=== PATIENT | female | born 1960 | race African-American/Black ===

== ENCOUNTER 2025-06-02 05:44 | Emergency (ER) | payer MEDICAID, OTHER ==
[~2025-06-02] VITALS: Ht 157.5 cm; Wt 120.0 kg
[~2025-06-02 05:44] MED LIST: CHOL20007 PO; CIPR-173 PO; LORA-1123 PO; METH-1181 PO; TRAM50TA2 PO
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
[2025-06-02 07:19] LABS: Chloride 105 mmol/L (98-107); Potassium 3.9 mmol/L (3.5-5.1); Sodium 142 mmol/L (136-145)
[2025-06-02 07:20] LABS: Anion Gap 11 (5-15); Carbon Dioxide 26 mmol/L (20-31); Hematocrit 38.5 % (36.0-46.0); Hemoglobin 12.4 g/dL (12.2-16.2); Mean Corpuscular Hemoglobin 27.2 pg (28.0-32.0); Mean Corpuscular Volume 84.2 fL (80.0-100.0); Nucleated Red Blood Cells % 0.0 %
[2025-06-02 07:21] LABS: Calcium 10.1 mg/dL (8.7-10.4)
[2025-06-02 07:25] LABS: Glucose 91 mg/dL (74-106)
[2025-06-02 07:26] LABS: BUN/Creatinine Ratio 10.5 (10.0-20.0); Blood Urea Nitrogen 9 mg/dL (9-23)
[2025-06-02 07:41] LABS: Urine Protein, UAD Normal (Negative)
--- NOTE | 2025-06-02 07:45 | DVH ---
INDICATION: INJURY TECHNIQUE: 4 radiographic views of the right wrist were obtained. COMPARISON: None FINDINGS: There is no evidence of acute fracture or dislocation.The visualized joint space is well ma intained.The alignment is anatomical.The surrounding soft tissues are unremarkable.There is no bony l esions or erosions identified. IMPRESSION: No acute fracture.
--- NOTE | 2025-06-02 08:04 | DVH ---
CLINICAL INDICATION: VAGINAL BLEEDING POST SEX INTERCOURSE TECHNIQUE: Multiple real-time transabdominal and transvaginal sonographic images of the pelvis were o btained. COMPARISON: None. FINDINGS: The uterus measures 9.1 x 4.1 x 3.4 cm. Nabothian cysts. The endometrial stripe measures 9 mm. Ovaries not seen, possibly obscured by overlying bowel gas. IMPRESSION: 1. Thickened endometrial stripe for postmenopausal state measuring 9 mm. Tissue sampling suggested. 2. Ovaries not seen, possibly obscured by overlying bowel gas.
[2025-06-02] MEDS ORDERED: NAPR-746 PO (08:48)
[2025-06-02] MEDS ORDERED: BACDST PO (08:48)
[2025-06-02 08:54] VITALS: BP 129/77; PULSE 87; RESP 16; TEMP 98.4; O2SAT 98
== END 2025-06-02 08:55 | disposition home or self-care (01) ==
LOC: ER 05:44
DX: S66.911A Strain of unspecified muscle, fascia and tendon at wrist and hand level, right hand, initial encounter (principal); S37.69XA Other injury of uterus, initial encounter; N39.0 Urinary tract infection, site not specified; R93.89 Abnormal findings on diagnostic imaging of other specified body structures; D64.9 Anemia, unspecified; Z98.890 Other specified postprocedural states; F41.9 Anxiety disorder, unspecified; X58.XXXA Exposure to other specified factors, initial encounter; Y93.89 Activity, other specified; Y92.89 Other specified places as the place of occurrence of the external cause; Y99.8 Other external cause status
CPT/HCPCS: 36415; 73110; 76830; 76856; 80048; 81003; 85025

== ENCOUNTER 2025-06-10 15:49 | Emergency (ER) | payer MEDICAID ==
[~2025-06-10] VITALS: Ht 157.5 cm; Wt 92.6 kg
[~2025-06-10 15:49] MED LIST changes: +BACDST PO; +NAPR-746 PO
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
[2025-06-10] MEDS: KETOROLAC TROMETH 30 MG/ML 1ML VIAL IM ONE (17:16)
[2025-06-10 17:41] VITALS: BP 140/91; PULSE 103; RESP 16; TEMP 98.2; O2SAT 98
== END 2025-06-10 17:42 | disposition home or self-care (01) ==
LOC: ER 15:49
DX: S20.229A Contusion of unspecified back wall of thorax, initial encounter (principal); F41.9 Anxiety disorder, unspecified; Z79.899 Other long term (current) drug therapy; Z88.1 Allergy status to other antibiotic agents; Z87.442 Personal history of urinary calculi; Z87.440 Personal history of urinary (tract) infections; W01.0XXA Fall on same level from slipping, tripping and stumbling without subsequent striking against object, initial encounter; Y93.89 Activity, other specified; Y92.89 Other specified places as the place of occurrence of the external cause; Y99.8 Other external cause status
CPT/HCPCS: 96372; 99283; J1885